=== PATIENT | male | born 1975 | race African-American/Black ===

== ENCOUNTER 2020-12-12 20:00 | Emergency (ER) | payer MEDICAID, MEDICARE ==
[~2020-12-12] VITALS: Ht 177.8 cm; Wt 135.0 kg
[~2020-12-12 20:00] MED LIST: ARIP2TAB3; BUPR75TA3; COG2; FANAPT; HALO10TA13; QUET400T11; VENL150C2
[2020-12-12 21:43] LABS: CHLORIDE 106 mEq/L (98-107)
[2020-12-12 21:46] LABS: BASOPHILS % 0.2 % (0.0-2.0); EOSINOPHILS % 0.8 % (0.0-5.0); HEMATOCRIT. 39.9 % (42.0-52.0); HEMOGLOBIN. 13.2 g/dL (14.0-18.0); LYMPHOCYTES % 46.3 % (20.0-50.0); MEAN CORPUSCULAR HEMOGLOBIN 28.6 pg (28.0-32.0); MEAN CORPUSCULAR VOLUME 86.3 fL (80.0-94.0); MEAN PLATELET VOLUME 7.5 fl (7.4-10.4); MONOCYTES % 13.2 % (2.0-8.0); NEUTROPHILS % 39.5 % (40.0-76.0); PLATELET 223 x1000/uL (130-400); RED BLOOD CELL COUNT 4.63 mill/uL (4.7-6.1); RED CELL DISTRIBUTION WIDTH 14.8 % (11.6-14.6)
[2020-12-12 21:49] LABS: ETHANOL BLOOD < 10 mg/dL
[2020-12-12 21:52] LABS: CLARITY URINE CLEAR (CLEAR); COLOR URINE YELLOW (YELLOW); KETONES URINE 1+ (NEGATIVE); LEUKOCYTE ESTERASE URINE NEGATIVE (NEGATIVE); NITRITE URINE NEGATIVE (NEGATIVE); OCCULT BLOOD URINE NEGATIVE (NEGATIVE); PH URINE 5.5 (4.5-8.0); PROTEIN URINE NEGATIVE (NEGATIVE); SPECIFIC GRAVITY URINE 1.032 (1.005-1.030); UROBILINOGEN URINE 0.2 E.U./dL (0.2-1.0)
[2020-12-12 22:25] LABS: METHADONE URINE SCREEN NEGATIVE (NEGATIVE); OPIATES URINE SCREEN NEGATIVE (NEGATIVE)
[2020-12-12 22:26] LABS: *AMPHETAMINES SCREEN URINE NEGATIVE (NEGATIVE); *BARBITURATES SCREEN URINE NEGATIVE (NEGATIVE); *BENZODIAZEPINES SCREEN URINE NEGATIVE (NEGATIVE); *COCAINE SCREEN URINE NEGATIVE (NEGATIVE); CANNABINOID URINE SCREEN PRESUMTIVE POSITIVE (NEGATIVE); PHENCYCLIDINE URINE SCREEN NEGATIVE (NEGATIVE)
[2020-12-13] MEDS ORDERED: OLANZAPINE 5MG TABLET ODT PO ONE (05:30)
[2020-12-13 18:00] VITALS: BP 124/71
== END 2020-12-13 18:17 | disposition home or self-care (01) ==
LOC: ER 20:00
DX: R45.851 Suicidal ideations (principal); F17.200 Nicotine dependence, unspecified, uncomplicated; Z79.899 Other long term (current) drug therapy; Z86.59 Personal history of other mental and behavioral disorders
CPT/HCPCS: 36415; 80053; 80305; 80320; 81003; 85025; 99283; G0480

== ENCOUNTER 2022-08-01 15:10 | Emergency (ER) | payer MEDICAID, MEDICARE, OTHER ==
[~2022-08-01] VITALS: Ht 188 cm; Wt 125.0 kg
[~2022-08-01 15:10] MED LIST changes: -QUET400T11; +QUET400T12; -VENL150C2; +VENL150C4
[2022-08-01] MEDS ORDERED: ASPIRIN 81MG TABLET PO ONE (16:30)
[2022-08-01] MEDS ORDERED: TETRACAINE 0.5% OPHTH DROPS 4ML RIGHTEYE ONE (16:30)
[2022-08-01] MEDS ORDERED: NITROGLYCERIN 0.4MG TABLET SL SL PRN (16:30)
[2022-08-01] MEDS ORDERED: FLUORESCEIN SODIUM 1MG/STRIP RIGHTEYE ONE (16:30)
[2022-08-01 17:14] LABS: BASOPHILS % 0.4 % (0.0-2.0); EOSINOPHILS % 1.2 % (0.0-5.0); HEMATOCRIT. 37.2 % (42.0-52.0); HEMOGLOBIN. 12.3 g/dL (14.0-18.0); LYMPHOCYTES % 38.9 % (20.0-50.0); MEAN CORPUSCULAR HEMOGLOBIN 28.4 pg (28.0-32.0); MEAN CORPUSCULAR VOLUME 86.4 fL (80.0-94.0); MEAN PLATELET VOLUME 8.2 fl (7.4-10.4); MONOCYTES % 11.6 % (2.0-8.0); NEUTROPHILS % 47.9 % (40.0-76.0); PLATELET 217 x1000/uL (130-400); RED BLOOD CELL COUNT 4.31 mill/uL (4.7-6.1); RED CELL DISTRIBUTION WIDTH 14.8 % (11.6-14.6)
[2022-08-01 17:19] LABS: CHLORIDE 107 mEq/L (98-107)
[2022-08-01 17:26] LABS: D-DIMER 0.41 mg/L FEU (<0.50); PARTIAL THROMBOPLASTIN TIME 28.6 sec (23.4-31.0); PROTHROMBIN TIME 10.9 sec (9.6-11.0)
[2022-08-01 20:00] VITALS: BP 120/68
== END 2022-08-01 20:30 | disposition home or self-care (01) ==
LOC: ER 15:10
DX: R07.89 Other chest pain (principal); H57.89 Other specified disorders of eye and adnexa
CPT/HCPCS: 36415; 71045; 80053; 83880; 84484; 85025; 85379; 93005; 99285

== ENCOUNTER 2022-08-12 02:25 | Emergency (ER) | payer MEDICARE, MEDICAID ==
[~2022-08-12] VITALS: Ht 195.6 cm; Wt 132.0 kg
[2022-08-12 04:30] LABS: BASOPHILS % 0.2 % (0.0-2.0); EOSINOPHILS % 1.4 % (0.0-5.0); HEMATOCRIT. 36.4 % (42.0-52.0); HEMOGLOBIN. 12.2 g/dL (14.0-18.0); LYMPHOCYTES % 33.1 % (20.0-50.0); MEAN CORPUSCULAR HEMOGLOBIN 28.8 pg (28.0-32.0); MEAN CORPUSCULAR VOLUME 85.9 fL (80.0-94.0); MEAN PLATELET VOLUME 7.7 fl (7.4-10.4); MONOCYTES % 7.3 % (2.0-8.0); PLATELET 237 x1000/uL (130-400); RED BLOOD CELL COUNT 4.23 mill/uL (4.7-6.1); RED CELL DISTRIBUTION WIDTH 15.1 % (11.6-14.6)
[2022-08-12 04:40] LABS: CHLORIDE 111 mEq/L (98-107)
[2022-08-12 04:49] LABS: ETHANOL BLOOD < 10 mg/dL
[2022-08-12] MEDS ORDERED: ACETAMINOPHEN 325MG TABLET PO NR (05:45)
[2022-08-12 06:24] VITALS: BP 120/60
== END 2022-08-12 07:30 | disposition home or self-care (01) ==
LOC: ER 02:25
DX: S09.90XA Unspecified injury of head, initial encounter (principal); F17.200 Nicotine dependence, unspecified, uncomplicated; F12.10 Cannabis abuse, uncomplicated; Z98.890 Other specified postprocedural states; Y93.67 Activity, basketball; Y92.89 Other specified places as the place of occurrence of the external cause; Y99.8 Other external cause status
CPT/HCPCS: 36415; 71045; 80053; 80320; 83880; 84484; 85025; 99285; G0480

== ENCOUNTER 2022-12-18 01:07 | Emergency (ER) | payer MEDICARE, MEDICAID ==
[~2022-12-18] VITALS: Ht 193 cm; Wt 130.6 kg
[2022-12-18 02:45] LABS: BASOPHILS % 0.3 % (0.0-2.0); EOSINOPHILS % 0.9 % (0.0-5.0); HEMATOCRIT. 43.3 % (42.0-52.0); HEMOGLOBIN. 14.4 g/dL (14.0-18.0); MEAN CORPUSCULAR HEMOGLOBIN 28.5 pg (28.0-32.0); MEAN CORPUSCULAR VOLUME 85.9 fL (80.0-94.0); MONOCYTES % 11.2 % (2.0-8.0); NEUTROPHILS % 55.6 % (40.0-76.0); PLATELET 237 x1000/uL (130-400); RED BLOOD CELL COUNT 5.04 mill/uL (4.7-6.1); RED CELL DISTRIBUTION WIDTH 14.8 % (11.6-14.6)
[2022-12-18 02:50] LABS: CHLORIDE 102 mEq/L (98-107)
[2022-12-18 05:30] VITALS: BP 136/74
[2022-12-18] MEDS ORDERED: IBUPROFEN 600MG TABLET PO ONE (05:30)
[2022-12-18] MEDS ORDERED: IBUP-2029 MT (05:30)
== END 2022-12-18 05:57 | disposition home or self-care (01) ==
LOC: ER 01:07
DX: R07.89 Other chest pain (principal); F12.10 Cannabis abuse, uncomplicated; Z86.59 Personal history of other mental and behavioral disorders
CPT/HCPCS: 36415; 71045; 80053; 83880; 84484; 85025; 85379; 93005; 99285

== ENCOUNTER 2025-10-27 00:21 | Emergency (ER) | payer MEDICAID, MEDICARE ==
[~2025-10-27] VITALS: Ht 188 cm; Wt 118.0 kg
[~2025-10-27 00:21] MED LIST changes: +EFXR15; +IBUP-1455 MT; -VENL150C4
[2025-10-27 00:24] VITALS: BP 150/89; PULSE 87; RESP 18; TEMP 98.6; O2SAT 98
[2025-10-27] MEDS ORDERED: ACETAMINOPHEN 500MG TABLET PO ONE (00:45)
== END 2025-10-27 00:46 | disposition left against medical advice (07) ==
LOC: ER 00:21 → CMPBEDREQ 10-28 10:50
DX: R06.02 Shortness of breath (principal); R07.2 Precordial pain; F15.90 Other stimulant use, unspecified, uncomplicated; F20.9 Schizophrenia, unspecified
CPT/HCPCS: 93005; 99284

== ENCOUNTER 2025-10-27 17:19 | Emergency (ER) | payer MEDICARE, MEDICAID ==
[~2025-10-27] VITALS: Ht 193 cm; Wt 147.5 kg
[2025-10-27 17:21] VITALS: O2SAT 100
[2025-10-27 19:32] LABS: BASOPHILS % 0.8 % (0.0-2.0); EOSINOPHILS % 0.8 % (0.0-5.0); HEMATOCRIT. 38.9 % (42.0-52.0); HEMOGLOBIN. 12.4 g/dL (14.0-18.0); LYMPHOCYTES % 32.6 % (20.0-50.0); MEAN PLATELET VOLUME 8.3 fl (7.4-10.4); MONOCYTES % 7.5 % (2.0-8.0); NEUTROPHILS % 58.3 % (40.0-76.0); PLATELET 225 x1000/uL (130-400); RED BLOOD CELL COUNT 4.50 mill/uL (4.7-6.1); RED CELL DISTRIBUTION WIDTH 16.3 % (11.6-14.6)
[2025-10-27 19:47] LABS: CREATININE 0.8 mg/dL (0.6-1.3); ETHANOL BLOOD < 10 mg/dL (<10); UREA NITROGEN BLOOD 8 mg/dL (9-23)
[2025-10-27 19:48] LABS: PROTEIN TOTAL 6.5 g/dL (6.0-8.3)
[2025-10-27 19:49] LABS: ASPARTATE AMINOTRANSFERASE 21 IU/L (<34); BILIRUBIN TOTAL 0.3 mg/dL (0.1-1.0)
[2025-10-27] MEDS: OLANZAPINE 5MG TABLET ODT PO SCH (21:36)
[2025-10-27] MEDS: OLANZAPINE 5MG TABLET ODT PO ONE (21:37)
[2025-10-27 22:16] LABS: *AMPHETAMINES SCREEN URINE NEGATIVE (NEGATIVE); *BARBITURATES SCREEN URINE NEGATIVE (NEGATIVE); *BENZODIAZEPINES SCREEN URINE NEGATIVE (NEGATIVE); *COCAINE SCREEN URINE NEGATIVE (NEGATIVE); CANNABINOID URINE SCREEN PRESUMPTIVE POSITIVE (NEGATIVE); ECSTASY MDMA SCREEN URINE NEGATIVE (NEGATIVE); METHADONE URINE SCREEN NEGATIVE (NEGATIVE); OPIATES URINE SCREEN NEGATIVE (NEGATIVE); PHENCYCLIDINE URINE SCREEN NEGATIVE (NEGATIVE)
[2025-10-28 07:55] VITALS: BP 127/74; PULSE 79; RESP 18; TEMP 36.6; O2SAT 100
== END 2025-10-28 03:15 | disposition short-term general hospital (02) ==
LOC: ER 17:19
DX: R45.851 Suicidal ideations (principal); F20.9 Schizophrenia, unspecified; Z20.822 Contact with and (suspected) exposure to COVID-19; Z79.899 Other long term (current) drug therapy
CPT/HCPCS: 36415; 80053; 80305; 80307; 80320; 80329; 85025; 87426; 99285; G0480

== ENCOUNTER 2025-11-19 17:27 | Emergency (ER) | payer MEDICARE, MEDICAID ==
[~2025-11-19] VITALS: Ht 182.9 cm; Wt 118.0 kg
[2025-11-19 17:29] VITALS: O2SAT 96
[2025-11-19 19:15] LABS: BASOPHILS % 0.3 % (0.0-2.0); EOSINOPHILS % 0.7 % (0.0-5.0); HEMATOCRIT. 41.8 % (42.0-52.0); HEMOGLOBIN. 13.7 g/dL (14.0-18.0); LYMPHOCYTES % 33.3 % (20.0-50.0); MEAN PLATELET VOLUME 7.6 fl (7.4-10.4); MONOCYTES % 8.3 % (2.0-8.0); NEUTROPHILS % 57.4 % (40.0-76.0); PLATELET 263 x1000/uL (130-400); RED BLOOD CELL COUNT 4.87 mill/uL (4.7-6.1); RED CELL DISTRIBUTION WIDTH 15.6 % (11.6-14.6)
[2025-11-19 19:34] LABS: CREATININE 0.9 mg/dL (0.6-1.3)
[2025-11-19 19:35] LABS: ETHANOL BLOOD < 10 mg/dL (<10)
[2025-11-19 19:45] LABS: UREA NITROGEN BLOOD 9 mg/dL (9-23)
[2025-11-19 21:35] LABS: CLARITY URINE CLEAR (CLEAR); COLOR URINE YELLOW (YELLOW); GLUCOSE URINE NEGATIVE (NEGATIVE); KETONES URINE NEGATIVE (NEGATIVE); LEUKOCYTE ESTERASE URINE NEGATIVE (NEGATIVE); NITRITE URINE NEGATIVE (NEGATIVE); OCCULT BLOOD URINE NEGATIVE (NEGATIVE); PH URINE 5.5 (4.5-8.0); PROTEIN URINE NEGATIVE (NEGATIVE); SPECIFIC GRAVITY URINE 1.023 (1.005-1.030); UROBILINOGEN URINE 0.2 E.U./dL (0.2-1.0)
[2025-11-19 21:44] LABS: *AMPHETAMINES SCREEN URINE NEGATIVE (NEGATIVE); *BARBITURATES SCREEN URINE NEGATIVE (NEGATIVE); *BENZODIAZEPINES SCREEN URINE NEGATIVE (NEGATIVE); *COCAINE SCREEN URINE NEGATIVE (NEGATIVE); METHADONE URINE SCREEN NEGATIVE (NEGATIVE); OPIATES URINE SCREEN NEGATIVE (NEGATIVE)
[2025-11-19 21:45] LABS: CANNABINOID URINE SCREEN PRESUMPTIVE POSITIVE (NEGATIVE); ECSTASY MDMA SCREEN URINE NEGATIVE (NEGATIVE); PHENCYCLIDINE URINE SCREEN NEGATIVE (NEGATIVE)
[2025-11-20] MEDS: ONDANSETRON 4MG ODT PO ONE (03:56)
[2025-11-20] MEDS: SENNOSIDES/DOCUSATE SOD 8.6/50MG TABLET PO PRN (03:56)
[2025-11-20 08:24] VITALS: BP 134/84; PULSE 96; RESP 16; TEMP 36.9; O2SAT 96
== END 2025-11-20 08:25 ==
LOC: ER 17:27
DX: R45.851 Suicidal ideations (principal); F20.9 Schizophrenia, unspecified; F32.A Depression, unspecified; I10 Essential (primary) hypertension; Z79.899 Other long term (current) drug therapy
CPT/HCPCS: 80305; 80048; 81003; 80307; 80329; 80320; 85025; 36415; 93005; 99285; 87426; Q0162; G0480